=== PATIENT | male | born 1970 | race African-American/Black ===

== ENCOUNTER 2016-06-27 14:52 | Emergency (ER) ==
--- NOTE | 2016-06-27 15:51 | PROVIDER DOCUMENTATION ---
HPI-General Adult - General Chief Complaint: Abscess Stated Complaint: ABCESS Time Seen by Provider: 06/27/16 15:33 Source: patient Allergies/Adverse Reactions: Patient Allergies Allergy/AdvReac Type Severity Reaction Status Date / Time daptomycin [From Cubicin] Allergy RASH Verified 06/27/16 16:36 vancomycin Allergy Unknown Verified 06/27/16 16:36 antibiotics Allergy FLUSHING Uncoded 06/02/16 17:35 Home Medications: Home Medication List Medication Instructions Recorded Confirmed Last Taken Type Diltiazem HCl [Matzim LA] 360 mg PO DAILY 10/29/15 10/29/15 10/29/15 History Hydralazine [Apresoline] 100 mg PO TID 10/29/15 10/29/15 10/29/15 22:50 History Multivitamin [Multi-Day Vitamins] 1 each PO DAILY 10/29/15 10/29/15 10/29/15 History Sucralfate 1 gm PO 4XDAY 10/29/15 10/29/15 10/29/15 History Sulfamethoxazole/Tmp D.s. [Septra 1 each PO BID #7 tablet 06/02/16 Unknown Rx Ds] - History of Present Illness -Gen Adult Nature of Presenting Problems: 45 y/o AAM c/o abscess over the right brow. 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 States its doesn't fee like that point now, but the abscess came back up yesterday. Sees ENT in [facility], and has f/u with them on July 21. Curently on 21 day course of Bactrim. Had had 3 CTs since the beginning of the year Review of Systems - Adult - REVIEW OF SYSTEMS - ADULT Constitutional: reports: see HPI, patricia. denies: chills, fever Eyes: reports: no symptoms reported. denies: blurred vision, double vision, eye pain Ears, Nose, Mouth & Throat: reports: see HPI, sinus problem. denies: ear pain, nose pain, throat pain Cardiovascular: reports: no symptoms reported. denies: chest pain, palpitations Respiratory: reports: no symptoms reported. denies: cough, shortness of breath , wheezing Gastrointestinal: reports: no symptoms reported. denies: abdominal pain, diarrhea, nausea, vomiting Genitourinary: reports: no symptoms reported. denies: dysuria, discharge, frequency Musculoskeletal: reports: no symptoms reported. denies: bone pain, back pain, muscle aches Integumentary: reports: no symptoms reported Neurological: reports: see HPI, headache/migraines. denies: ataxia, dizziness/ vertigo Psychiatric: reports: no symptoms reported Endocrine: reports: no symptoms reported Hematologic/Lymphatic: reports: no symptoms reported Allergic/Immunologic: reports: no symptoms reported All Other Systems: Reviewed and Negative Past History - Adult - PAST MEDICAL HISTORY-ADULT Review of Records: reports: Old Records Reviewed, Nursing Assessment Review, Medications Reviewed Major Childhood Illnesses: reports: denies history Cardiovascular: reports: HTN Respiratory: reports: denies history Gastrointestinal: reports: denies history Genitourinary: reports: denies history Musculoskeletal: reports: denies history Neurological: reports: denies history Endocrine/Immune: reports: denies history Other Conditions: reports: other (sleep apnea) - PRIOR SURGERIES/PROCEDURES Surgical/Procedure History: reports: none - PRIOR HOSPITALIZATIONS Prior Hospitalizations: reports: none - IMMUNIZATION STATUS Childhood Immunizations: See Nurse Assessment Flu Vaccine: See Nurse Assessment - FAMILY HISTORY Family History: reviewed, not pertinent - SOCIAL HISTORY Smoking: non-smoker Substance Use: none/never Alcohol Use Frequency: never Physical Exam-General - PHYSICAL EXAM-ADULT Initial Vital Signs Reviewed: Yes - CONSTITUTIONAL General Appearance: appears well, alert, no apparent distress - EYES Eyes: PERRL/EOMI, pink conjunctivae - HEAD, EARS, NOSE, MOUTH & THROAT HENMT: normocephalic/atraumatic, moist mucous membranes, normal ENT inspection, other (abscess over the right brow) - NECK Neck: non-tender, full range of motion, supple, normal inspection. negative: lymphadenopathy - RESPIRATORY Respiratory: chest non-tender, lungs clear, normal breath sounds, no pleuratic chest pain, no respiratory distress, no accessory muscle use. negative: respiratory distress, decreased breath sounds, accessory muscle use, crackles, rales, rhonchi, wheezing - CARDIOVASCULAR Cardiovascular: normal peripheral pulses, regular rate, rhythm - MUSCULOSKELETAL Extremity: normal gait - SKIN Integumentary: normal color, normal turgor, warm/dry - NEUROLOGIC Neurologic: grossly normal, no motor/sensory deficits - PSYCHIATRIC Psych/Mental Status: normal mood/affect, normal thought content, normal thought process, oriented x 3 Progress - PLAN OF CARE/RESULTS Progress/Plan/Lab Results: Vital Signs Temp Pulse Resp BP Pulse Ox 06/27/16 17:21 97.5 F L 76 20 126/77 98 06/27/16 15:13 99.1 F 82 18 142/83 99 daptomycin [From Cubicin] Allergy (Verified 06/27/16 16:36) RASH vancomycin Allergy (Verified 06/27/16 16:36) Unknown antibiotics Allergy (Uncoded 06/02/16 17:35) FLUSHING Diltiazem HCl [Matzim LA] 360 mg PO DAILY 10/29/15 Hydralazine [Apresoline] 100 mg PO TID 10/29/15 Multivitamin [Multi-Day Vitamins] 1 each PO DAILY 10/29/15 Sucralfate 1 gm PO 4XDAY 10/29/15 Sulfamethoxazole/Tmp D.s. [Septra Ds] 1 each PO BID #7 tablet 06/02/16 Laboratory 06/27/16 15:51 WBC 8.88 RBC 5.18 Hgb 13.7 L Hct 42.8 MCV 82.6 MCH 26.4 L MCHC 32.0 L RDW Std Deviation 14.9 H Plt Count 272 MPV 9.8 Immature Gran % (Auto) 0.6 H Neut % (Auto) 63.5 Lymph % (Auto) 24.1 Arthur % (Auto) 11.4 H Eos % (Auto) 0.3 Baso % (Auto) 0.1 Immature Gran # (Auto) 0.05 H Neut # (Auto) 5.64 Lymph # (Auto) 2.14 Arthur # (Auto) 1.01 H Eos # (Auto) 0.03 Baso # (Auto) 0.01 Vital Signs Temp Pulse Resp BP Pulse Ox 06/27/16 17:21 97.5 F L 76 20 126/77 98 06/27/16 15:13 99.1 F 82 18 142/83 99 daptomycin [From Cubicin] Allergy (Verified 06/27/16 16:36) RASH vancomycin Allergy (Verified 06/27/16 16:36) Unknown antibiotics Allergy (Uncoded 06/02/16 17:35) FLUSHING Diltiazem HCl [Matzim LA] 360 mg PO DAILY 10/29/15 Hydralazine [Apresoline] 100 mg PO TID 10/29/15 Multivitamin [Multi-Day Vitamins] 1 each PO DAILY 10/29/15 Sucralfate 1 gm PO 4XDAY 10/29/15 Sulfamethoxazole/Tmp D.s. [Septra Ds] 1 each PO BID #7 tablet 06/02/16 Laboratory 06/27/16 15:51 WBC 8.88 RBC 5.18 Hgb 13.7 L Hct 42.8 MCV 82.6 MCH 26.4 L MCHC 32.0 L RDW Std Deviation 14.9 H Plt Count 272 MPV 9.8 Immature Gran % (Auto) 0.6 H Neut % (Auto) 63.5 Lymph % (Auto) 24.1 Arthur % (Auto) 11.4 H Eos % (Auto) 0.3 Baso % (Auto) 0.1 Immature Gran # (Auto) 0.05 H Neut # (Auto) 5.64 Lymph # (Auto) 2.14 Arthur # (Auto) 1.01 H Eos # (Auto) 0.03 Baso # (Auto) 0.01 Orders Category Date Time Status I and D Set up DIRECTED Care 06/27/16 16:15 Active SINUSES [RAD] Stat Exams 06/27/16 15:47 Completed CBC WITH ELECTRONIC DIFF [HEME] Stat Lab 06/27/16 15:51 Completed Lidocaine 1% Pf [Xylocaine-Mpf 1%] Med 06/27/16 16:15 Discontinued 5 ml INJ NOW ONE - XRAY 1 XRAY: Bilateral XRAY Study: other (sinuses) Impression: Normal (no sinusitis seen. per radiology) Procedures - INCISION & DRAINAGE Site: right eyebrow Abscess Type: Simple Prepped with: Kit UtilizedTamara Anesthetic: 1%, Lidocaine/Xylocaine Volume of Anesthetic (ml's): 1 Blade Size: 11 Packing placed?: No Sterile Dressing Applied?: Yes Drainage: Purulent, Small Amount Departure - Departure Time of Disposition Order: 16:57 DIAGNOSIS: Abscess Disposition: HOME 01 Certified Medical Emergency: Emergent Condition: Stable Additional Instructions: Call your ENT tomorrow Continue the bactrim you are currently on ED Follow Up Instructions: You have been treated by a care provider in the Emergency Department. These instructions are being provided to you so you can have an understanding of how to care for yourself upon discharge. Upon discharge from the Emergency Department, you are responsible for making arrangements for follow-up care by a physician of your choice. Take all prescribed medications as directed. Return to the Emergency Department immediately for any new or worsening symptoms. You may call the Physician Referral phone number at [phone] to obtain a list of Physicians who are taking new patients. Referrals: Chaz Nicholas, [Primary Care Provider] - Forms: Return to School/Parent Work Instructions: Abscess Attestation - Physician/ SHANNON Attestation Patient care was provided by Advanced Practice Provider:: Yes Advanced Practice Provider:: Henny Bills Advanced Practice Provider documentation review:: The Mid-level provider documentation, treatment plan and medical decision making was reviewed by the physician who agrees with all treatment and medical decision making by the MLP.
[2016-06-27 15:57] LABS: MANUAL DIFF NEEDED? NO
[2016-06-27 16:01] LABS: BASO% 0.1 % (0.0-0.8); EOS# 0.03 X1000 (0.0-0.7); EOS% 0.3 % (0.0-10.0); HEMATOCRIT 42.8 % (42.0-52.0); HEMOGLOBIN 13.7 g/dL (14.0-18.0); IMM GRAN# 0.05 X1000 (0.0-0.04); IMM GRAN% 0.6 % (0.0-0.5); LYMPH# 2.14 X1000 (1.2-3.4); LYMPH% 24.1 % (20.5-51.1); MCH 26.4 PG (27-31); MCV 82.6 FL (81-99); MONO# 1.01 X1000 (0.11-0.59); MONO% 11.4 % (1.7-9.3); MPV 9.8 FL (7.4-10.4); NEUT% 63.5 % (42.2-75.2); PLT 272 X1000 (130-400); RBC 5.18 XMIL (4.7-6.1)
[2016-06-27] MEDS ORDERED: XYLOCAINE-MPF 1% INJ ONE (16:15)
--- NOTE | 2016-06-27 16:34 | Diag Imaging Result Document ---
PROCEDURE NAME: SINUSES - 06/27/2016 SINUS SERIES, FIVE VIEWS: FINDINGS: No sinus opacification. No air fluid levels. No mucosal thickening. IMPRESSION: No sinusitis.
[2016-06-27 17:22] VITALS: BP 126/77
== END 2016-06-27 17:22 | disposition home or self-care (01) ==
LOC: P.ED 14:52
DX: L02.01 Cutaneous abscess of face (principal); R53.83 Other fatigue; R51 Headache; I10 Essential (primary) hypertension; Z79.899 Other long term (current) drug therapy
CPT/HCPCS: 36415; 70220; 85025